=== PATIENT | female | born 1975 | race Caucasian/White ===

== ENCOUNTER 2019-07-15 20:14 | Emergency (ER) | payer MEDICAID ==
[~2019-07-15] VITALS: Ht 152.4 cm; Wt 54.4 kg
[2019-07-15 20:16] VITALS: BP 137/94
[2019-07-15] MEDS ORDERED: hydrOXYzine HCL 25 MG TAB PO ONE (21:20)
[2019-07-15 21:27] VITALS: BP 154/88
== END 2019-07-15 22:05 | disposition left against medical advice (07) ==
LOC: MED 20:14
DX: R06.02 Shortness of breath (principal); R20.0 Anesthesia of skin; F15.90 Other stimulant use, unspecified, uncomplicated; Z71.6 Tobacco abuse counseling; F17.210 Nicotine dependence, cigarettes, uncomplicated
CPT/HCPCS: 99282